=== PATIENT | female | born 2000 | race Caucasian/White ===

== ENCOUNTER 2022-06-25 02:56 | Emergency (ER) | payer OTHER, SELFPAY ==
[2022-06-25 03:48] VITALS: BP 105/82; PULSE 70; RESP 18; TEMP 36.4; O2SAT 99; BMI 27.5
--- NOTE | 2022-06-25 04:03 | ED_ITS ---
HPI - Wound/Laceration General Time Seen by Provider: 04:03 Date Seen: 06/25/22 Chief Complaint: Laceration/Wound Stated Complaint: Right hand laceration Time Seen by Provider: 06/25/22 04:03 Source: patient and RN notes reviewed Mode of arrival: ambulatory Limitations: no limitations History of Present Illness HPI narrative: Kassy is a very pleasant 22-year-old female with up-to-date tetanus who comes to the emergency room with complaints of laceration over the lateral aspect of her 5th MCP on the right hand. Patient is currently working for [employer] and notes that her hand brushed against a piece of metal in the back of the truck. She notes that it was clean on and since that time she has had some bleeding from the area but has had no numbness or tingling and she is able to move this. She suspect she will need stitches. Related Data Home Medications Medication Instructions Recorded Confirmed venlafaxine 150 mg 150 mg PO DAILY 06/25/22 06/25/22 capsule,extended release 24 hr (Effexor XR) Allergies Allergy/AdvReac Type Severity Reaction Status Date / Time No Known Drug Allergies Allergy Verified 06/25/22 03:55 Review of Systems Narrative: Denies numbness or tingling or difficulty with movement PFSH PFSH Social History Smoking Status: Never smoker How often do you have a drink containing alcohol: never AUDIT-C Alcohol total score: 0 Non-prescribed substance use: denies use Exam Narrative: Exam Narrative: Kassy is alert and oriented. She is accompanied by her significant other. She has no respiratory distress. She has multiple bruises over her biceps area and her arms in various stages of healing. On her right hand medial aspect of the 5th MCP she has sustained a curvilinear laceration measuring approximately 1.2 cm compromising epidermis and dermis. Subcutaneous tissue is visualized but no underlying structures are noted. Patient has full extension flexion abduction at the joint. Additionally sensation is intact Const: Vital Signs, click to edit/add: Vital Signs - 24 hr 06/25/22 03:48 Temperature 97.5 F L Pulse Rate [Pulse Oximeter] 70 Respiratory Rate 18 Blood Pressure [Ri ght Upper Arm] 105/82 Pulse Oximetry 99 Oxygen Delivery Me thod Room Air Documenting provider has reviewed patient's vital signs: yes Course Course Hospital Course: Staff does clean this wound for me. Procedure note: Unfortunately given the location of the wound I do not think we can use Dermabond. Will need to place stitches. Area anesthetized with lidocaine with epinephrine. Two sutures of 4-0 Ethilon are placed in interrupted fashion with good wound closure. Vital Signs Vital signs: Initial Vital Signs Temperature 97.5 F L 06/25/22 03:48 Temperature Source Temporal Artery Scan 06/25/22 03:48 Pulse Rate 70 06/25/22 03:48 Respiratory Rate 18 06/25/22 03:48 Blood Pressure 105/82 06/25/22 03:48 Blood Pressure Mean 89 06/25/22 03:48 Blood Pressure Position Sitting 06/25/22 03:48 Pulse Oximetry 99 06/25/22 03:48 Oxygen Delivery Method 06/25/22 03:48 Vital Signs Temperature 97.5 F L 06/25/22 03:48 Pulse Rate 70 06/25/22 03:48 Respiratory Rate 18 06/25/22 03:48 Blood Pressure 105/82 06/25/22 03:48 Pulse Oximetry 99 06/25/22 03:48 Oxygen Delivery Method 06/25/22 03:48 Temperature 97.5 F L 06/25/22 03:48 Pulse Rate 70 06/25/22 03:48 Respiratory Rate 18 06/25/22 03:48 Blood Pressure 105/82 06/25/22 03:48 Pulse Oximetry 99 06/25/22 03:48 Oxygen Delivery Method 06/25/22 03:48 MDM - Wound/Laceration MDM Narrative Medical decision making narrative: 1. Hand laceration repair-recommend no use of the right hand at work over the next 48 hours. I have written a note to this effect. Sutures will be removed in 10 days time. Until then avoid soaking hands such is in dishwater or swim bring pool. Monitor for signs and symptoms of infection and should they occur seek medical attention. Ibuprofen or Tylenol as needed for discomfort. 2. Disposition-patient discharged home in the care of her significant other. Return as needed. Discharge Plan Discharge Clinical Impression: Laceration Patient Disposition: Home, Self-Care Condition: Improved Additional Instructions: Suture removal in 10 days. For infection. No use of right hand for 48 hours including 12 3 and 12 4. Seek medical attention for worsening symptoms. May shower but do not soak the wound such as you would do with swimming or being in a hot tub. Prescriptions: No Action venlafaxine [Effexor XR] 150 mg capsule,extended release 24hr 150 mg PO DAILY Follow Up/Referrals: Provider,Not a Local [Primary Care Provider] - Stand Alone Forms: iConText Info Instructions
--- OUTSIDE RECORDS SUMMARY | 2022-06-25 04:21 | XMS_ITS | Encounter Summary ---
:2000 Author Organization [facility] Address [address], [place] [address] Care Team Providers Name Role Phone Unavailable Primary Care Provider Unavailable Reason for Visit Reason Comments Preplacement Physical LVH- NST Encounter Details Date Type Department Care Team Description 05/19/2020 Office Visit [facility] Pre-em ployment [place] Occupational exam ination (Primary Dx) Medicine [address] [address] Social History Tobacco Use Types Packs/Day Years Used Date Smoking Tobacco: Never Smokeless Tobacco: Never Alcohol Use Standard Drinks/Week Comments Not Currently 0 (1 standard drink = 0.6 oz pure alcoho l) Sex Assigned at Date Recorded Not on file documented as of this encounter Last Filed Vital Signs Vital Sign Reading Time Taken Comments Blood Pressure - - Pulse - - Temperature - - Respiratory Rate - - Oxygen Saturation - - Inhaled Oxygen Concentration - - Weight 74.6 kg (164 lb 6.4 oz) 05/19/2020 1:36 PM CDT Height 165.1 cm (5' 5) 05/19/2020 1:36 PM CDT Body Mass Index 27.36 05/19/2020 1:36 PM CDT documented in this encounter Progress Notes Nora Montalvo RN - 05/19/2020 10:30 AM CDT Employer: [employer] Position: NST Denies previous injuries to head, neck and back. Right wrist fracture 10 years ago. Denies continuing concerns. Denies restrictions or limitations. Denies previous MVA and work-related injuries. Previous surgeries/hospitalizations: denies Anxiety diagnosed February 2019. Taking medication since 2019. Reports medication is helpful. Well controlled. Denies restrictions or limitations. See scanned documents for further information. Nora Montalvo RN 05/19/2020, 1:37 PM documented in this encounter Plan of Treatment Not on filedocumented as of this encounter Visit Diagnoses Diagnosis Pre-employment examination - Primary Health examination of defined subpopulat ion documented in this encounter
--- OUTSIDE RECORDS SUMMARY | 2022-06-25 04:21 | XMS_ITS | Clinical Summary ---
:2000 Author Organization [facility] Address [address] [place] [id number] Care Team Providers Name Role Phone Sera Dhillon Primary Care Provider Allergies No known active allergies Medications Medication Sig Dispensed Refills Start Date End Date Status albuterol (PROAIR Inhale 1 puff into 0 Active HFA/PROVENTIL the lungs HFA/VENTOLIN HFA) 108 (90 Base) MCG/ACT inhaler levonorgestrel 1 Intra Uterine 0 Active (MIRENA) 20 MCG/24HR Device by IUD Intrauterine route once tretinoin (RETIN-A) 0 08/14/2019 Active 0.025 % external cream venlafaxine Take 75 mg by mouth 0 11/04/2020 Active (EFFEXOR-XR) 75 MG 24 daily hr capsule Social History Tobacco Use Types Packs/Day Years Used Date Smoking Tobacco: Never Smokeless Tobacco: Never Tobacco Cessation: Counseling Given: No Alcohol Use Standard Drinks/Week Comments Yes 0 (1 standard drink = 0.6 oz pure alcoho l) Sex Assigned at Date Recorded Not on file Last Filed Vital Signs Vital Sign Reading Time Taken Comments Blood Pressure 107/61 03/03/2022 10:38 AM CDT Pulse 71 03/03/2022 10:38 AM CDT Temperature 37.1 ??C (98.7 ??F) 03/03/2022 10:38 AM CDT Respiratory Rate 16 01/21/2021 2:00 PM CDT Oxygen Saturation 99% 03/03/2022 10:38 AM CDT Inhaled Oxygen Concentration - - Weight 75.3 kg (166 lb) 03/03/2022 10:38 AM CDT Height 165.1 cm (5' 5) 01/21/2021 2:00 PM CDT Body Mass Index 27.62 01/21/2021 2:00 PM CDT Plan of Treatment Health Maintenance Due Date Last Done Comments ADVANCE CARE PLANNING 2000 ANNUAL REVIEW OF HM ORDERS 2000 CHLAMYDIA SCREENING 2000 HIV SCREENING 2015 HEPATITIS C SCREENING 2018 PAP 2021 PHQ-2 (once per calendar 07/24/2021 01/21/2021, 01/21/2021 year) COVID-19 Vaccine (4 - 09/01/2021 07/07/2021, 08/03/2020, Booster for Pfizer series) 07/13/2020 INFLUENZA VACCINE (#1) 2022 03/31/2020, 04/27/2019, 04/30/2018, Additional history exists YEARLY PREVENTIVE VISIT 07/19/2022 07/19/2021, 04/23/2020, 02/14/2019, Additional history exists DTAP/TDAP/TD IMMUNIZATION 04/23/2030 04/23/2020, 01/19/2011 , (5 - Td or Tdap) 01/07/2005, Additional history exists HEPATITIS B IMMUNIZATION Completed 06/01/2001, 2000, 2000 IPV IMMUNIZATION Completed 01/07/2005, 01/18/2001, 2000, Additional history exists HPV IMMUNIZATION Completed 12/23/2015, 01/17/2014, 12/26/2012 MENINGITIS IMMUNIZATION Completed 02/07/2017, 01/31/2012 Pneumococcal Vaccine: Aged Out 04/23/2020, 06/01/2001, No longer eligible Pediatrics (0 to 5 Years) 01/18/2001, Additional based on patient's age and At-Risk Patients (6 to history exists to co mplete this topic 64 Years) Insurance Payer Benefit Plan / Subscriber ID Effective Dates Phone Addre ss Type Group MEDICA MEDICA CHOICE [id number] 2020-Present [phone] [address] [address] Indemnity [address] [place] [address] Care Teams Flight Control Manager Relationship Specialty Start Date End Date Mollenhoff, Sera PCP - General Primary Care - CC 01/21/21 [facility] [address] [facility] [address] [place] [address]
--- OUTSIDE RECORDS SUMMARY | 2022-06-25 04:21 | XMS_ITS | Encounter Summary ---
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 documented as of this encounter Last Filed Vital Signs Vital Sign Reading Time Taken Comments Blood Pressure 130/60 01/21/2021 2:00 PM CDT Pulse 83 01/21/2021 2:00 PM CDT Temperature 36.6 ??C (97.9 ??F) 01/21/2021 2:00 PM CDT Respiratory Rate 16 01/21/2021 2:00 PM CDT Oxygen Saturation 99% 01/21/2021 2:00 PM CDT Inhaled Oxygen Concentration - - Weight 75.6 kg (166 lb 9.6 oz) 01/21/2021 2:00 PM CDT Height 165.1 cm (5' 5) 01/21/2021 2:00 PM CDT Body Mass Index 27.72 01/21/2021 2:00 PM CDT documented in this encounter Progress Notes Dali Johnson NP - 01/21/2021 1:20 PM CDT ASSESSMENT/PLAN: 1. Patient request for diagnostic testing - Group A Streptococcus PCR Throat Swab - SARS-CoV-2 COVID-19 Virus (Coronavirus) by PCR 2. Sore throat - Symptomatic COVID-19 Virus (Coronavirus) by PCR Strep PCR was negative. COVID result pending. Instructed the patient to remain in quarantine until she receives her COVID result. Discussed with the patient that based on her symptoms and physical exam findings her symptoms are most likely related to a viral pharyngitis. Symptomatic treatment - Encouraged fluids, salt water gargles, honey, lozenges, etc May use [id number] Tylenol or ibuprofen PRN Discussed warning signs/symptoms indicative of need to f/u Follow up if symptoms persist or worsen or concerns I explained my diagnostic considerations and recommendations to the patient, who voiced understanding and agreement with the treatment plan. All questions were answered. We discussed potential side effects of any prescribed or recommended therapies, as well as expectations for response to treatments. HPI: Kassy Tobias is a 20 year old female who presents to [facility] today for a sore throat, cough, fatigue and dizziness. Symptoms started yesterday. Reports chills. Denies fever. Denies fatigue anddizziness during today's visit. No known sick contacts. She was at a concert this past weekend. She has had both COVID vaccines. She took ibuprofen today which helped with her sore throat. Non productive intermittent cough. History reviewed. No pertinent past medical history. History reviewed. No pertinent surgical history. Social History Tobacco Use ??? Smoking status: Never Smoker ??? Smokeless tobacco: Never Used Substance Use Topics ??? Alcohol use: Yes Current Outpatient Medications Medication Sig Dispense Refill ??? albuterol (PROAIR HFA/PROVENTIL HFA/VENTOLIN HFA) 108 (90 Base) MCG/ACT inhaler Inhale 1 puff into the lungs ??? hydrOXYzine (ATARAX) 25 MG tablet Take 25-50 mg by mouth every 6 hours as needed ??? levonorgestrel (MIRENA) 20 MCG/24HR IUD 1 Intra Uterine Device by Intrauterine route once ??? tretinoin (RETIN-A) 0.025 % external cream ??? venlafaxine (EFFEXOR-XR) 75 MG 24 hr capsule Take 75 mg by mouth daily ??? vitamin D3 (CHOLECALCIFEROL) 125 MCG (5000 UT) tablet Take 5,000 Units by mouth daily No Known Allergies Past medical history, past surgical history, current medications and allergies reviewed and accurateto the best of my knowledge. ROS: Refer to HPI BP 130/60 Pulse 83 Temp 97.9 ??F (36.6 ??C) (Tympanic) Resp 16 Ht 1.651 m (5' 5) Wt 75.6 kg (166 lb 9.6 oz) LMP 01/17/2021 SpO2 99% BMI 27.72 kg/m?? EXAM: General Appearance: Well appearing female, appropriate appearance for age. No acute distress Ears: Left TM intact, translucent with bony landmarks appreciated, no erythema, no effusion, no bulging, no purulence. Right TM intact, translucent with bony landmarks appreciated, no erythema, no effusion, no bulging, no purulence. Left auditory canal clear. Right auditory canal clear. Normal external ears, non tender. Orophayrnx: moist mucous membranes, posterior pharynx with mild erythema, tonsils with hypertrophy bilaterally, no erythema, white exudate to the right tonsil, no petechiae, no post nasal drip seen, notrismus, voice clear. Neck: supple without adenopathy Respiratory: normal chest wall and respirations. Normal effort. Clear to auscultation bilaterally, no wheezing, crackles or rhonchi. No increased work of breathing. No cough appreciated. Cardiac: RRR with no murmurs Psychological: normal affect, alert, oriented, and pleasant. documented in this encounter Nursing Notes Alejandrina Olivo LPN - 01/21/2021 1:20 PM CDT Chief Complaint Patient presents with ??? Throat Pain Patient is here for a sore throat that started yesterday. Patient would like a strep test. Initial BP 130/60 Pulse 83 Temp 97.9 ??F (36.6 ??C) (Tympanic) Resp 16 Ht 1.651 m (5' 5) Wt 75.6 kg (166 lb 9.6 oz) LMP 01/17/2021 SpO2 99% BMI 27.72 kg/m?? Estimated body mass index is 27.72 kg/m?? as calculated from the following: Height as of this encounter: 1.651 m (5' 5). Weight as of this encounter: 75.6 kg (166 lb 9.6 oz). Medication Reconciliation: complete Alejandrina Olivo LPN documented in this encounter Plan of Treatment Not on filedocumented as of this encounter Procedures Procedure Name Priority Date/Time Associated Comments Diagnosis SARS-COV-2 (COVID-19) Routine 01/21/2021 2:[address] for Results for this VIRUS RT-PCR CDT diagnostic testing procedure are in the results section. COVID-19 VIRUS Routine 01/21/2021 2:27 PM Sore throat Results for this (CORONAVIRUS) BY PCR CDT procedu re are in the results section. GROUP A STREPTOCOCCUS Routine 01/21/2021 2:[address] for Results for this PCR THROAT SWAB CDT diagnostic testing proced ure are in the results section. documented in this encounter Results SARS-CoV-2 COVID-19 Virus (Coronavirus) by PCR (01/21/2021 2:27 PM CDT) [facility] Method Time Signature SARS-CoV-2 Nasopharyngeal 01/22/2021 INFECTIOUS Virus 7:52 PM CDT DISEASES Specimen DIAGNOSTIC Source LABORATORY, [facility] SARS-CoV-2 NEGATIVE 01/22/2021 INFECTIOUS PCR Result 7:52 PM CDT DISEASES DIAGNOSTIC LABORATORY, [facility] Comment: SARS-CoV2 (COVID-19) RNA not de tected, presumed negative. SARS-CoV-2 PCR Testing was performed using the [employer] SARS-CoV-2 Assay on the [employer] Instrument System. 01/22/2021 7:52 PM INFECTIO US DISEASES Comment Additional information about this Emergency Use Authorization (EUA) assay can be found via CDT DIAGNOSTIC the Lab Guide. LABORATORY, [facility] Comment: This test should be ordered for the dete ction of SARS-CoV-2 in individuals who meet SARS-CoV-2 clinical and/or epidemi ological criteria. Test performance is unknown in asymptomatic patients. This test is for in vitro diagnostic use under the FDA EUA for laboratories certified under CLIA to perform high com plexity testing. This test has not been FDA cleared or approved. A negative result does not rule out the presence of PCR inhibitors in the specimen or target RNA in concentration below the limit of detection for the assay. The possibility of a false negati ve should be considered if the patient's recent exposure or clinical pr esentation suggests COVID-19. This test was validated by the [facility] Infectious Diseases Diagnostic Laboratory. This laboratory i s certified under the Clinical Laboratory Improvement Amendments of 198 8 (CLIA-88) as qualified to perform high complexity laboratory testing. Specimen (Source) Anatomical Collection Method Collection Time Re ceived Time Location / / Volume Laterality Specimen from 01/21/2021 2:27 01/21/2021 nasopharyngeal PM CDT 2:28 PM CDT structure (specimen) Dali Johnson NP LAB - MICRO GENERAL ORDERABL ES Performing Organization Address City/State/ZIP Code Phon e Number INFECTIOUS DISEASES DIAGNOSTIC [address] [facility] [place] [address] LABORATORY, [facility] Symptomatic COVID-19 Virus (Coronavirus) by PCR (01/21/2021 2:27 PM CDT) Component Value Ref Test Analysis Performed At [facility] Range Method Time Signature COVID-19 Nasopharyngeal 01/21/2021 [place] Virus PCR to 2:28 PM CDT [facility]INIC [facility] Source COVID-19 Test received-See 01/22/2021 INFECTIOUS Virus PCR to reflex to IDDL 1:45 PM CDT DISEASES [facility] - test SARS CoV2 DIAGNOSTIC Result (COVID-19) Virus LABORATORY, RT-PCR [facility] Specimen (Source) Anatomical Collection Method Collection Time Re ceived Time Location / / Volume Laterality Specimen from 01/21/2021 2:27 01/21/2021 nasopharyngeal PM CDT 2:28 PM CDT structure (specimen) Dali Johnson NP LAB - MICRO GENERAL ORDERABL ES Performing Organization Address City/State/ZIP Code Phon e Number INFECTIOUS DISEASES [address] [place] [address] DIAGNOSTIC LABORATORY, [facility] AND [address] [place], [place] [address], [facility] Group A Streptococcus PCR Throat Swab (01/21/2021 2:11 PM CDT) [facility] Method Time Signature Specimen Throat 01/21/2021 [place] Description 2:03 PM CDT CLINIC AND HOSPITAL Strep Group A Not Detected NDET^Not 01/21/2021 [facility] [place] PCR Detected 2:39 PM CDT CLINIC AND HOSPITAL Comment: Group A Streptococcus DNA is not detecte d. FDA approved assay performed using [employer] id GeneXpert real-time PCR. Specimen Anatomical Collection Method Collection Time Receive d Time (Source) Location / / Volume Laterality Specimen from 01/21/2021 2:11 PM 01/22/20 2:12 throat CDT PM CDT (specimen) Dali Johnson NP LAB - MICRO GENERAL ORDERABL ES Performing Organization Address City/[facility]/ZIP [facility] Phon e Number [facility] [address] [place] [address] [facility] [address] [facility] AND [address] [place] [address], [facility] [phone] [facility] documented in this encounter Visit Diagnoses Diagnosis Patient request for diagnostic testing - Primary Other specified general medical examinat ion Sore throat Acute pharyngitis documented in this encounter Additional Health Concerns Assessment Noted Time PHQ-9 Depression Total Score: 17 01/21/2021 2:00 PM CD T documented as of this encounter Care Teams Coater Associate Relationship Specialty Start Date End Date Sera Dhillon PCP - General Primary Care - CC 01/21/21 [facility] [address] [facility] [address] [place], [place] [id number] documented as of this encounter
--- OUTSIDE RECORDS SUMMARY | 2022-06-25 04:21 | XMS_ITS | Clinical Summary ---
:2000 [facility] Address [address], [place] [address] Care Team Providers Name Role Phone Unavailable Primary Care Provider Unavailable Source Comments You are receiving this document as you are listed as the primary care provider,follow-up provider, or the patient has been referred to you for consultation.This is in compliance with the Medicare and Medicaid EHR Incentive Program,which states Providers who transition their patient to another setting of careor provider of care or refers their patient to another provider of care shouldprovide summarycare record for each transition of care or referral. [facility] Allergies No known active allergies Medications Medication Sig Dispensed Refills Start Date End Date Status sertraline (ZOLOFT) Take 100 mg by 0 Active 100 MG tablet mouth daily. AMOXICILLIN OR 50 mg two times a 0 Active day. levonorgestrel 1 Each by 0 Activ e (MIRENA) 20 MCG/24HR Intrauterine route IUD once. Immunizations Name Administration Dates Next Due Pfizer (Comirnaty) COVID-19, 12+ Yrs Purple Top 08/03/2020, 07/13/2020 Social History Tobacco Use Types Packs/Day Years [...] Mass Index 27.36 05/19/2020 1:36 PM CDT Plan of Treatment Health Maintenance Due Date Last Done Comments Cervical Cancer Screening 2000 Due Chlamydia 2000 Hep C Screening (Preventive 2000 Services) HepB (1) 2000 HIV Screening (Preventive 2016 Services) Adult Preventive Visit 2018 COVID-19 Vaccine (3 - 09/28/2020 08/03/2020, 07/13/2020 Booster for Pfizer series) Influenza (#1) 2022 03/31/2020, 04/27/2019, 04/30/2018, Additional history exists DTaP/Tdap/Td (8 - Tdap) 04/23/2030 04/23/2020, 01/19/2011, 01/07/2005, Additional history exists Zoster/Shingles (1 of 2) 2050 HepA Completed 12/26/2012, 01/31/2012 HPV Vaccine Completed 12/23/2015, 01/17/2014, 12/26/2012 MCV4 Completed 02/07/2017, 01/31/2012 Pneumococcal Aged Out 04/23/2020, 06/01/2001, No longe r eligible 01/18/2001, Additional based on patient's age history exists to complete this topic Hib Aged Out No longer eligib le based on patient 's age to complete this topic IPV (Polio) Aged Out No longer eligib le based on patient 's age to complete this topic Kassy Tobias Personal/Family Self 2000 [id number] (Home) [place] [address] [facility] Company Account Employer [employer] (Home) [email or web address] [phone] [employer] (Work) [email or web address]
--- OUTSIDE RECORDS SUMMARY | 2022-06-25 04:21 | XMS_ITS ---
:2000 Author Organization [facility] ury Address [address] [place] [address] Care Team Providers Name Role Phone Laina Paiz Unavailable Unavailable PROBLEMS Type Condition ICD9-CM Code [id number] Code Onset Condition SNO MED Code Dates Status Problem Encounter for Z11.3 Active [id number] special screening examination for infection with predominantly sexual mode of transmission Problem Encounter for Z11.4 Active [id number] 004 screening for HIV ALLERGIES No Known Allergies ENCOUNTERS Encounter Location Date Diagnosis [facility] [address] Dec, [place] for screening [place], [place] [phone] for HIV Z11.4 and Encounter for sp ecial screening examin ation for infection with predominantly se xual mode of transmission Z11.3 [facility] [address] Dec, [place] annual routine [place], [place] [phone] gynecolo gical examination Z01.419 IMMUNIZATIONS No Known Immunizations SOCIAL HISTORY Qualifiers Date Never Smoker REASON FOR REFERRAL FUNCTIONAL STATUS PLAN OF CARE VITAL SIGNS Height 65 in 2021-12-24 Weight 170.2 lbs 2021-12-24 BMI 28.32 kg/m2 2021-12-24 Blood pressure systolic 132 mm Hg 2021-12-24 Blood pressure diastolic 78 mm Hg 2021-12-24 MEDICATIONS Medication Instructions Dosage Frequency Start Date End Date Duration S tatus Mirena Active Venlafaxine HCl Active PROCEDURES Procedure Date Ordered Result Body Site CHYLMD TRACH, DNA, AMP PROBE - IH December 24, 2021 N.GONORRHOEAE, DNA, AMP PROBE - IH December 24, 2021 BRIEF EMOTIONAL/BEHAV ASSMT December 24, 2021 RESULTS Name Result Date Reference Range HIV 1/2 ANTIGEN/ANTIBODY,FOURTH GENERATION 12-24 W/RFL HIV AG/AB, 4TH GEN NON-REACTIVE NON-REACTIVE RPR (DX) W/REFL TITER AND CONFIRMATORY 3 TESTING RPR (DX) W/REFL TITER AND CONFIRMATORY NON-REACTIVE NON-REACTIVE TESTING HEPATITIS B SURFACE ANTIGEN W/REFL CONFIRM 12-24 HEPATITIS B SURFACE ANTIGEN NON-REACTIVE NON- REACTIVE HEPATITIS C AB W/REFL TO HCV RNA, QN, PCR 12-24 HEPATITIS C ANTIBODY NON-REACTIVE NON-REACTIV E INDEX 0.07 <[address]00 [address]/NG (IH) 2021-12-24 CHLAMYDIA TRACHOMATIS NOT DETECTED NOT DETECT ED - [place] GONORRHOEAE NOT DETECTED NOT DETECT ED - REASON FOR VISIT Insurance Providers [facility] Member Patient Patient Patient Patient Patient Subscriber Subscriber Subscriber Group Insurance Plan Plan Plan Plan ID Relationship Address Phone Name Date of ID Name Date of No Type Insurance Insurance Insurance Coverage to Subscriber Address Phone Name Dates Medica [address] [place] [id number] [phone] [address] [id number] [address] [employer] ([facility] [place] [id number] MEDICAL (GENERAL) HISTORY Type Description Date Medical History High Cholesterol Medical History Bladder Infections Medical History Migraines Medical History Depression/Anxiety Surgical History [place] [facility]
--- OUTSIDE RECORDS SUMMARY | 2022-06-25 04:21 | XMS_ITS ---
:2000 Author Organization [facility] ury Address [address] [place] [address] Care Team Providers Name Role Phone Laina Paiz Unavailable Unavailable PROBLEMS Type Condition ICD9-CM Code [id number] Code Onset Condition SNO MED Code Dates Status Problem Encounter for Z11.3 Active [id number] 9 special screening examination for infection with predominantly sexual mode of transmission Problem Encounter for Z11.4 Active 267713 004 screening for HIV ALLERGIES No Known Allergies ENCOUNTERS Encounter Location Date Diagnosis [facility] [address] Dec, [place] for screening [place], [place] [phone] for HIV Z11.4 and Encounter for sp ecial screening examin ation for infection with predominantly se xual mode of transmission Z11.3 [facility] [address] Dec, [place] annual routine [place], [place] [phone] gynecolo gical examination Z01.419 IMMUNIZATIONS No Known [...] 2021 BRIEF EMOTIONAL/BEHAV ASSMT December 24, 2021 N.GONORRHOEAE, DNA, AMP PROBE - IH December 24, 2021 RESULTS Name Result Date [...] ED - REASON FOR VISIT Insurance Providers [facility] Member Patient Patient Patient Patient Patient Subscriber Subscriber Subscriber Group Insurance Plan Plan Plan Plan ID Relationship Address Phone Name Date of ID Name Date of No Type Insurance Insurance Insurance Coverage to Subscriber Address Phone Name Dates Medica [address] [place] [id number] [phone] [address] [id number] [address] [employer] ([facility] [place]) [id number] MEDICAL (GENERAL) HISTORY Type Description Date Medical History High Cholesterol Medical History Bladder Infections Medical History Migraines Medical History Depression/Anxiety Surgical History [place] [facility]
--- OUTSIDE RECORDS SUMMARY | 2022-06-25 04:21 | XMS_ITS | Encounter Summary ---
:2000 Author Organization [place] Address [address] [place] [address] Care Team Providers Name Role Phone Sera Dhillon Primary Care Provider Encounter Details Date Type Department Care Team Description 01/21/2021 Travel Social History Tobacco Use Types Packs/Day Years Used Date Smoking Tobacco: Never Smokeless Tobacco: Never Alcohol Use Standard Drinks/Week Comments Yes 0 (1 standard drink = 0.6 oz pure alcoho l) Sex Assigned at Date Recorded Not on file COVID-19 Exposure Response Date Recorded In the last month, have you been in contact with No / Unsure 01/21/2021 1:50 PM CDT someone who was confirmed or suspected to have Coronavirus / COVID-19? documented as of this encounter Plan of Treatment Not on filedocumented as of this encounter Visit Diagnoses Not on filedocumented in this encounter Additional Health Concerns Infection Onset Date Last Indicated Resolved Time Rule Out COVID-19 01/21/2021 01/21/2021 01/22/2021 7:5 2 PM CDT Assessment Noted Time PHQ-9 Depression Total Score: 17 01/21/2021 2:00 PM CD T documented as of this encounter Care Teams Violin Repairer Relationship Specialty Start Date End Date Sera Dhillon PCP - General Primary Care - CC 01/21/21 [place] [id number] [facility] [address] [place] [address] documented as of this encounter
--- OUTSIDE RECORDS SUMMARY | 2022-06-25 04:21 | XMS_ITS | Encounter Summary ---
:2000 Author Organization [facility] Address [address] [place] [address] Care Team Providers Name Role Phone Unavailable Primary Care Provider Unavailable Encounter Details Date Type Department Care Team Description 07/13/2020 Immunization [facility] Varies by location [place] [phone] Social History Tobacco Use Types Packs/Day Years Used Date Smoking Tobacco: Never Smokeless Tobacco: Never Alcohol Use Standard Drinks/Week Comments Not Currently 0 (1 standard drink = 0.6 oz pure alcoho l) Sex Assigned at Date Recorded Not on file documented as of this encounter Plan of Treatment Not on filedocumented as of this encounter Visit Diagnoses Not on filedocumented in this encounter
--- OUTSIDE RECORDS SUMMARY | 2022-06-25 04:21 | XMS_ITS | Encounter Summary ---
:2000 Author Organization [place] Address [address] [place] [address] Care Team Providers Name Role Phone Sera Dhillon Primary Care Provider Encounter Details Date Type Department Care Team Description 03/03/2022 Travel Social History Tobacco Use Types Packs/Day Years Used Date Smoking Tobacco: Never Smokeless Tobacco: Never Alcohol Use Standard Drinks/Week Comments Yes 0 (1 standard drink = 0.6 oz pure alcoho l) Sex Assigned at Date Recorded Not on file COVID-19 Exposure Response Date Recorded In the last 10 days, have you been in contact with No / Unsu re 03/03/2022 10:00 AM CDT someone who was confirmed or suspected to have Coronavirus/COVID-19? documented as of this encounter Plan of Treatment Not on filedocumented as of this encounter Visit Diagnoses Not on filedocumented in this encounter Additional Health Concerns Infection Onset Date Last Indicated Resolved Time Rule Out COVID-19 03/03/2022 03/03/2022 03/03/2022 8:2 7 PM CDT Assessment Noted Time PHQ-9 Depression Total Score: 17 01/21/2021 2:00 PM CD T documented as of this encounter Care Teams French Comber Relationship Specialty Start Date End Date Sera Dhillon PCP - General Primary Care - CC 01/21/[address] [place] [id number] [facility] [address] [place] [address] documented as of this encounter
--- OUTSIDE RECORDS SUMMARY | 2022-06-25 04:21 | XMS_ITS | Encounter Summary ---
:2000 Author Organization [place] Address [address] [place] [address] Care Team Providers Name Role Phone Sera Dhillon Primary Care Provider Reason for Visit Reason Comments Urgent Care Sinus Problem C/O sinus and sore throat fo r 2 days Encounter Details Date Type Department Care Team Description 03/03/2022 Office Visit [facility] Chase Taylor Throat p ain (Primary Dx); Urgent Care Yaw Gillette MD Sinusitis, unspecified chronicity, unspe cified location [address] [phone] Social History Tobacco Use Types Packs/Day Years [...] have Coronavirus/COVID-19? documented as of this encounter Last Filed Vital Signs Vital Sign Reading Time Taken Comments Blood Pressure 107/61 03/03/2022 10:38 AM CDT Pulse 71 03/03/2022 10:38 AM CDT Temperature 37.1 ??C (98.7 ??F) 03/03/2022 10:38 AM CDT Respiratory Rate - - Oxygen Saturation 99% 03/03/2022 10:38 AM CDT Inhaled Oxygen Concentration - - Weight 75.3 kg (166 lb) 03/03/2022 10:38 AM CDT Height - - Body Mass Index 27.62 01/21/2021 2:00 PM CDT documented in this encounter Patient Instructions Patient InstructionsChase Taylor MD - 03/03/2022 10:30 AM CDT COVID test returns in about 24 hours our team will call if positive Nasal steroids Fluticasone or Flonase Use once daily in each nostril. Tilt head forward and spray upwards into nasal passage, then plug that side of the nostril for 5 seconds. Repeat on other side. Benefits are not immediate but will gradually treat your condition of allergies/sinus inflammation. Oral prednisone 40mg for 3 days to help with inflammation Aleve 220mg every 12 hours for discomfort If symptoms worsen return right away to be evaluated documented in this encounter Progress Notes Chase Taylor MD - 03/03/2022 10:30 AM CDT Assessment & Plan Throat pain - Streptococcus A Rapid Screen w/Reflex to PCR - Clinic Collect - Group A Streptococcus PCR Throat Swab - Symptomatic; Unknown COVID-19 Virus (Coronavirus) by PCR Nose - predniSONE (DELTASONE) 20 MG tablet Dispense: 6 tablet; Refill: 0 Sinusitis, unspecified chronicity, unspecified location Low suspicion for PE based on hx ( no estrogen, no cigarette smoking, no FH ) and vitals stable. Presumed inflammation of throat/sinus/chest from a viral illness. Low suspicion for pneumonia Prednisone 40mg for 3 days to help with inflammation. Aleve for inflammation/discomfort. Start nasalsteroids Chase Taylor MD [facility] Anupam Elena is a 21 year old female who presents to clinic today for the following health issues: Chief Complaint Patient presents with ??? Urgent Care ??? Sinus Problem C/O sinus and sore throat for 2 days HPI Patient presents with 5 days of symptoms primarily starting with some body aches now has sinus pressure towards the ears. No recent history of ear infection. No fevers. No present cough. A little bit of moderate chest tightness. Has tried Aleve with minimal results. No difficulty with swallowing. Rapid COVID test was negative at home. There are no problems to display for this patient. Current Outpatient Medications Medication ??? predniSONE (DELTASONE) 20 MG tablet ??? albuterol (PROAIR HFA/PROVENTIL HFA/VENTOLIN HFA) 108 (90 Base) MCG/ACT inhaler ??? levonorgestrel (MIRENA) 20 MCG/24HR IUD ??? tretinoin (RETIN-A) 0.025 % external cream ??? venlafaxine (EFFEXOR-XR) 75 MG 24 hr capsule No current facility-administered medications for this visit. Objective BP 107/61 Pulse 71 Temp 98.7 ??F (37.1 ??C) (Tympanic) Wt 75.3 kg (166 lb) LMP 02/24/2022 SpO2 99% BMI 27.62 kg/m?? Physical Exam GEN: NAD Mouth: no enlarged tonsils, cobblestoning of posterior CV: RRR no m/r/g Pulm: clear bilaterally Results for orders placed or performed in visit on 03/03/22 Streptococcus A Rapid Screen w/Reflex to PCR - Clinic Collect Status: Normal Specimen: Throat; Swab Result Value Ref Range Group A Strep antigen Negative Negative The use of [employer] dictation services may have been used to construct the content in this note; any grammatical or spelling errors are non- intentional. Please contact the author of this note directly if you are in need of any clarification. documented in this encounter Plan of Treatment Not on filedocumented as of this encounter Procedures Procedure Name Priority Date/Time Associated Comments Diagnosis COVID-19 VIRUS Today 03/03/2022 11:02 Throat pain Results f or this (CORONAVIRUS) BY PCR AM CDT procedu re are in the results section. STREPTOCOCCUS A RAPID Routine 03/03/2022 10:39 Throat pain Re sults for this SCREEN W REFELX TO PCR AM CDT proce dure are in the results section. GROUP A STREPTOCOCCUS Routine 03/03/2022 10:39 Throat pain Re sults for this PCR THROAT SWAB AM CDT procedure ar e in the results section. documented in this encounter Results Symptomatic; Unknown COVID-19 Virus (Coronavirus) by PCR Nose (03/03/2022 11:02 AM CDT) Analysis Performed At Patho logist Time Signature SARS CoV2 PCR Negative Negative 03/03/2022 [facility] 8:27 PM CDT LABORATORY Comment: NEGATIVE: SARS-CoV-2 (COVID-19) RNA not detected, presumed negative. Specimen Anatomical Collection Method Collection Time Receive d Time (Source) Location / / Volume Laterality Swab NASAL STRUCTURE / Non-blood 03/03/2022 11:02 2021 Unknown Collection / AM CDT 11:04 AM CDT Unknown Narrative [facility] - 03/03/2022 8:27 PM C DT Testing was performed using the Aptima SARS-CoV-2 Assay on the [employer] Instrument System. Additional in formation about this Emergency Use Authorization (EUA) assay can be found via the Lab Guide. This test should be ordered for t he detection of SARS-CoV-2 in individuals who meet SARS-CoV-2 clinical and/or epidemiological criteria. Test performance is unknown in asymptomatic patients. This test is for in vitro diagnostic use unde r the FDA EUA for laboratories certified under CLIA to per form high complexity testing. This test has not been FDA cleared or ap proved. A negative result does not rule out the presence of PCR in hibitors in the specimen or target RNA in concentration below the li wendi of detection for the assay. The possibility of a false negati ve should be considered if the patient's recent exposure or clinica l presentation suggests COVID-19. This test was validated by the [facility]. This lab oratory is certified under the Clinical Laboratory Improvement Amen dments of 1987 (CLIA-88) as qualified to perform high complexity lab oratory testing. Chase Taylor MD LAB - MICRO GENERAL ORDERABL ES Performing Organization Address City/State/ZIP Code Phon e Number [facility] [place] [address] [address]ag[address] [facility], [address] Group A Streptococcus PCR Throat Swab (03/03/2022 10:39 AM CDT) Patholo gist Method Time Signature Group A strep Not Detected Not Detected 03/03/2022 [facility] by PCR 3:19 PM CDT LABORATORY Specimen Anatomical Collection Method Collection Time Receive d Time (Source) Location / / Volume Laterality Swab STRUCTURE OF Non-blood 03/03/2022 10:39 03/03/2022 ANTERIOR PORTION Collection / AM CDT 10:56 AM CD T OF NECK / Unknown Unknown Narrative [facility] - 03/03/2022 3:19 PM C DT The Xpert Xpress Strep A test, performed on the [employer] Instrument Systems, is a rapid, qualitative in vitro diagnostic t est for the detection of Streptococcus pyogenes (Group A ? - hemolytic Streptococcus, Strep A) in thr oat swab specimens from patients with signs and symptoms of pharyngitis. The Xpert X press Strep A test can be used as an aid in the diagnosis of Group A Streptococcal p haryngitis. The assay is not intended to monitor treatment for Group A Streptococ cus infections. The Xpert Xpress Strep A test utilizes an automated real-time polymera se chain reaction (PCR) to detect Streptococcus pyogenes DNA. Chase Taylor MD LAB - MICRO GENERAL ORDERABL ES Performing Organization Address City/State/ZIP Code Phon e Number [facility] [place] [phone] Diag. Lab [address] [facility], [address] Streptococcus A Rapid Screen w/Reflex to PCR - Clinic Collect (03/03/2022 10:39 AM CDT) Analysis Performed At Patho logist Time Signature Group A Strep Negative Negative 03/03/2022 [facility] antigen 10:56 AM CDT Specimen Anatomical Collection Method Collection Time Receive d Time (Source) Location / / Volume Laterality Swab STRUCTURE OF Non-blood 03/03/2022 10:39 03/03/2022 ANTERIOR PORTION Collection / AM CDT 10:44 AM CD T OF NECK / Unknown Unknown Chase Talyor MD LAB - MICRO GENERAL ORDERABL ES Performing Organization Address City/State/ZIP Code Phon [place] [address] [phone] [facility] [address] [place] [address] Lab (no room number, 1st floor of clinic) [place] [phone] [address] [phone] Clinic - [place] [facility] [address] [facility] Lab (no room number, 1st floor of clinic) documented in this encounter Visit Diagnoses Diagnosis Throat pain - Primary Sinusitis, unspecified chronicity, unspe cified location documented in this encounter Additional Health Concerns Assessment Noted Time PHQ-9 Depression Total Score: 17 01/21/2021 2:00 PM CD T documented as of this encounter Care Teams Brief Writer Relationship Specialty Start Date End Date Sera Dhillon PCP - General Primary Care - CC 01/21/21 [facility] [address] [facility] [address] [place] [address] documented as of this encounter
== END 2022-06-25 05:13 | disposition home or self-care (01) ==
PROVIDERS: Emergency Provider Family Medicine
DX: S61.411A Laceration without foreign body of right hand, initial encounter (principal); W26.9XXA Contact with unspecified sharp object(s), initial encounter
CPT/HCPCS: 12001; 99283